=== PATIENT | male | born 1960 | race Caucasian/White ===

== ENCOUNTER → 2018-05-20 14:00 | Outpatient (CLI) | payer OTHER, MEDICAID, SELFPAY ==
--- NOTE | 2018-05-20 | OV.WND_ITS ---
Progress Note Details Patient Name: Alexx Paige Patient Number: [id number] PatientPatientDate: 05/20/2018 Clinician: Sadie Gibson Physician / Patient Access: Rafael Zamora SUBJECTIVE Chief Complaint This information was obtained from the patient Chronic Right ankle wound for at least 1 year Allergies Bactrim (Severity: Moderate, Reaction: HIves) HPI This information was obtained from the patient 05/21/18. Seen by Dr. Zamora. The patient's new to our clinic and presents with severe, refractory cellulitis of the right lower leg that's been present for at least a month and has been unresponsive to Bactrim which in fact caused a significant all over body rash. He has a right lower leg venous ulcer that's chronic and drains as well and reports considerable pain at this site. Of note, he's taken heavy doses of ibuprofen for the pain up to 4-5 tabs 3 -4 times daily but does not report abdominal pain or changes in his stool. Family History This information was obtained from the patient Cancer - Father, Diabetes - No History, Heart Disease - No History, Hereditary Spherocytosis - No History, Hypertension - No History, Kidney Disease - No History, Lung Disease - No History, Mental Illness - No History, Non-contributory - No History, None - No History, Other - No History, Seizures - No History, Stroke - No History, Thyroid Problems - No History, Tuberculosis - No History Social History This information was obtained from the patient Current every day smoker - 1/2-3/4 pack a day, Caffeine Use - 2 cups, Children - 2, Financial Concerns - Not currently, Illicit Drug Use - cannibus , Lives in - Home with Friend, 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, Self Care and Mobility Past Medical History This information was obtained from the patient Patient has a medical history of: Chronic Venous Hypertension Cellulitis Complaints and Symptoms This information was obtained from the patient Patient complains of: General Notes: I have reviewed and concur with the Review of Systems and Past Family Social History documents completed by the clinician, I have reviewed and concur with the Wound Assessment document completed by the clinician Cardiovascular (Central/Peripheral): Lower extremity (leg) swelling Integumentary (Hair/Skin/Nails): Open Sore Prior Wound History: Drainage, Erythema, Pain Patient denies complaints or symptoms related to: Cardiovascular (Central/Peripheral): Intermittent Claudication, Lower extremity (leg) resting pain Constitutional Symptoms (General Health): Chills, Fever Ear/Nose/Mouth/Throat: Hearing Loss / Aid Hematologic/Lymphatic: Bleeding / Clotting Disorders, Bleeding Tendency Neurological: Loss of Protective Sensation Psychiatric: Memory Loss Respiratory: Shortness of Breath General Notes: Updated Medications ibuprofen 200 mg capsule oral 1 1 capsule oral every 4-6 hours as needed prednisone 20 mg tablet oral tablet oral once daily for 5 days for rash doxycycline hyclate 100 mg capsule oral capsule oral twice daily for 7 days for cellulitis OBJECTIVE Constitutional BP elevated; Afebrile; Alert and in no distress. Well developed. Alert. Clean appearing.. Height/Length: 69 in (175.26 cm), Weight: 215 lbs (97.73 kgs), BMI: 31.7, Temperature: 98.8 ?F (37.11 ?C), Pulse: 100 bpm, Respiratory Rate: 18 breaths/min, Blood Pressure : 162/95 mmHg, Pulse Oximetry: 99 %. Ears, Nose, Mouth, and Throat: No clinically significant hearing loss on informal examination. Respiratory: No respiratory distress. Even respirations and without use of accessory muscles.. Cardiovascular: 2+ right lower extremity edema. Gastrointestinal (GI): Non-obese. Nondistended.. Integumentary (Hair, Skin) Moderate right lower leg and periwound erythema with warmth. Refer to appropriate clinician wound documentation for this visit; right lower leg ulcer extends to subcut with base partially covered with pink granulation, remainder fibrin and slough. Mild confluent, erythematous rash in the affected areas of torso, neck, and arms without appreciable drainage. Wound #1 Right Leg is a chronic Partial Thickness Vasculitic Ulcer and has received a status of Not Healed. Initial wound encounter measurements are 1cm length x 1.5cm width x 0.1cm depth, with an area of 1.5 sq cm and a volume of 0.15 cubic cm. No tunneling has been noted. No sinus tract has been noted. No undermining has been noted. There is a moderate amount of serous drainage noted which has no odor. The patient reports a wound pain of level 6/10. The wound margin is irregular. Wound bed has No epithelialization, No eschar, No slough, No granulation. The periwound skin texture is normal. The periwound skin moisture is normal. The periwound skin color is normal. The temperature of the periwound skin is Warm. Periwound skin presents with s/s of infection. Confirmation Description and Treatment Plan is: Signs and Symptoms Present. Local Pulse is Doppler. Neurological: Cranial nerves grossly intact with symmetric function normal by informal observation.. ASSESSMENT Active Problems ICD-10 (Encounter Diagnosis) L97.812 - Non-pressure chronic ulcer of other part of right lower leg with fat layer exposed (Encounter Diagnosis) I87.311 - Chronic venous hypertension (idiopathic) with ulcer of right lower extremity (Encounter Diagnosis) L03.115 - Cellulitis of right lower limb (Encounter Diagnosis) R21 - Rash and other nonspecific skin eruption (Encounter Diagnosis) T36.8X5A - Adverse effect of other systemic antibiotics, initial encounter PLAN Wound Orders: Wound #1 Right Leg Cleanser Cleanse Wound: - Distilled water. May Shower. - Keep wound dry, use cast protector boot. Topical Treatments Antibiotic/Antimicrobial Ointment/Cream. - Triple antibiotic ointment. Dressings Primary dressing: - Border foam. Change Dressing: - Every other day. Follow-Up Appointments Return Appointment: - - Next week. Scribing Attestation I attest, as the nurse, that I scribed these orders for the physician. Medications prescribed: doxycycline hyclate - oral 100 mg capsule twice daily for 7 days for cellulitis starting 05/20/2018 prednisone - oral 20 mg tablet once daily for 5 days for rash starting 05/20/2018 I've reviewed the clinician's documentation and agree with the evaluation and plan as written. Also, I've started the patient empirically on doxycycline for right lower leg cellulitis and prescribed a short course of prednisone to treat the rash related to his taking Bactrim. He's also been advised to take ibuprofen only as prescribed and to not take it while taking prednisone. Electronic Signature(s) Signed By: Date: Rafael Zamora MD 05/21/2018 14:35:09 Entered By: Rafael Zamora on 05/21/2018 14:33:27
== END ==
PROVIDERS: Visit Provider Internal Medicine
DX: I87.311 Chronic venous hypertension (idiopathic) with ulcer of right lower extremity (principal); L97.812 Non-pressure chronic ulcer of other part of right lower leg with fat layer exposed; L03.115 Cellulitis of right lower limb; R21 Rash and other nonspecific skin eruption; T36.8X5A Adverse effect of other systemic antibiotics, initial encounter
CPT/HCPCS: 87070; 87075; 87077; 87147; 87205; 99213

== ENCOUNTER → 2018-05-27 10:17 | Outpatient (CLI) | payer OTHER, MEDICAID, SELFPAY | PROVIDERS: Visit Provider Internal Medicine | DX: I87.311 Chronic venous hypertension (idiopathic) with ulcer of right lower extremity (principal); L97.812 Non-pressure chronic ulcer of other part of right lower leg with fat layer exposed; L03.115 Cellulitis of right lower limb; R21 Rash and other nonspecific skin eruption | CPT/HCPCS: 11042; 11045 ==

== ENCOUNTER → 2018-06-01 09:41 | Outpatient (CLI) | payer OTHER, MEDICAID, SELFPAY ==
--- NOTE | 2018-06-01 | OV.WND_ITS ---
Progress Note Details Patient Name: Alexx Paige Patient Number: [id number] PatientPatientDate: 06/01/2018 Clinician: Goldie Miranda Clinician Cosigner: Amanda Hernandez Physician / Appliance Service Representative: Rafael Zamora SUBJECTIVE Chief Complaint This information was obtained from the patient Chronic Right ankle wound for at least 1 year. Allergies Bactrim (Severity: Moderate, Reaction: Hives) HPI This information was obtained from the patient 06/01/18. Seen by Dr. Zamora. The patient continues to report moderate improvement in terms of his chronic right lower leg pain and cellulitis since starting on doxycycline and his wound culture from the associated venous ulcer grew group G Strep. He did not receive his prescription however for prednisone that was to treat the severe rash caused by taking Bactrim prior to his initial visit. He continues to report pruritus over this arms and torso. 05/27/18. Seen by Dr. Zamora. The patient reports moderate improvement in terms of his chronic right lower leg pain and cellulitis since starting on doxycycline last week and his wound culture from the associated venous ulcer grew group G Strep. He also feels his severe rash which start after taking Bactrim has begun to improve while taking prednisone. He does not report side effects from the doxycycline, fevers, or feeling unwell in general although he continues to report generalized pruritus. 05/21/18. Seen by Dr. Zamora. The patient's new to our clinic and presents with severe, refractory cellulitis of the right lower leg that's been present for at least a month and has been unresponsive to Bactrim which in fact caused a significant all over body rash. He has a right lower leg venous ulcer that's chronic and drains as well and reports considerable pain at this site. Of note, he's taken heavy doses of ibuprofen for the pain up to 4-5 tabs 3 -4 times daily but does not report abdominal pain or changes in his stool. Past Medical History This information was obtained from the patient Patient has a medical history of: Chronic Venous Hypertension Cellulitis Complaints and Symptoms This information was obtained from the patient Patient complains of: General Notes: I have reviewed and concur with the Review of Systems and Past Family Social History documents completed by the clinician, I have reviewed and concur with the Wound Assessment document completed by the clinician Allergic/Immunologic: Frequent Rashes Cardiovascular (Central/Peripheral): Lower extremity (leg) swelling Integumentary (Hair/Skin/Nails): Open Sore Prior Wound History: Drainage, Erythema, Pain Patient denies complaints or symptoms related to: Cardiovascular (Central/Peripheral): Intermittent Claudication, Lower extremity (leg) resting pain Constitutional Symptoms (General Health): Chills, Fever Ear/Nose/Mouth/Throat: Hearing Loss / Aid Gastrointestinal (GI): Nausea / Vomiting, Stomach/abdominal pain Hematologic/Lymphatic: Bleeding / Clotting Disorders, Bleeding Tendency Neurological: Loss of Protective Sensation Psychiatric: Memory Loss Respiratory: Shortness of Breath OBJECTIVE Constitutional Vital signs reviewed and noted. Well developed. Alert. Clean appearing.. Height/ Length: 69 in (175.26 cm), Weight: 213 lbs (96.82 kgs), BMI: 31.5, Temperature: 98.8 ?F ( 37.11 ?C), Pulse: 94 bpm, Respiratory Rate: 20 breaths/min, Pulse Oximetry: 96 %. Ears, Nose, Mouth, and Throat: No clinically significant hearing loss on informal examination. Respiratory: No respiratory distress. Even respirations and without use of accessory muscles.. Cardiovascular: 2+ right lower extremity edema. Integumentary (Hair, Skin) Hyperkeratotic changes noted periulcer area over the right lower leg; diffuse erythema improved in terms of color and warmth. Refer to appropriate clinician wound documentation for this visit; right lower leg ulcer extends to subcut with base partially covered with pink granulation, remainder fibrin and slough. Wound #1 Right Leg is a chronic Full Thickness Venous Ulcer and has received a status of Not Healed. Subsequent wound encounter measurements are 0.1cm length x 0.1cm width with no measurable depth, with an area of 0.01 sq cm . No tunneling has been noted. No sinus tract has been noted. No undermining has been noted. There was no drainage noted. The patient reports a wound pain of level 6/10. The wound margin is irregular. Wound bed has Yes epithelialization, No eschar, No slough, No granulation. The periwound skin texture is normal. The periwound skin moisture is normal. The periwound skin color is normal. The temperature of the periwound skin is Warm. Periwound skin presents with s/s of infection. Confirmation Description and Treatment Plan is: Signs and Symptoms Present, Systemic Antibiotics Prescribed. Local Pulse is Doppler. General Notes: Dried drainage present, no open area visible at this time. Neurological: Cranial nerves grossly intact with symmetric function normal by informal observation.. ASSESSMENT Active Problems ICD-10 (Encounter Diagnosis) L97.812 - Non-pressure chronic ulcer of other part of right lower leg with fat layer exposed (Encounter Diagnosis) I87.311 - Chronic venous hypertension (idiopathic) with ulcer of right lower extremity (Encounter Diagnosis) L03.115 - Cellulitis of right lower limb (Encounter Diagnosis) R21 - Rash and other nonspecific skin eruption (Encounter Diagnosis) T36.8X5A - Adverse effect of other systemic antibiotics, initial encounter PROCEDURES Wound #1 Wound #1 (Venous Ulcer) is located on the right leg. A non-selective mechanical debridement with a total area debrided of 0.01 sq cm was performed by Rafael Zamora MD. Non-viable tissue was removed.The procedure was tolerated well with a pain level of 0 throughout and a pain level of 0 following the procedure. Post Debridement Measurements: 0.1cm length x 0.1cm width x 0.1cm depth; with an area of 0.01 sq cm and a volume of 0.001 cubic cm; General Notes: Dried exudate removed. PLAN Wound Orders: Wound #1 Right Leg Cleanser Cleanse Wound: - Distilled water. May Shower. - If you wear a shower boot (cast protector) keep dressing dry and do not get the wound wet from bathing. Topical Treatments Moisturizing lotion to surround skin. - Over the counter steroid cream Dressings Cover and secure with: - Telfa pad, secured with conform wrap gauze. Change Dressing: - Every other day. Compression/Edema Control Elevation of leg(s) above the level of the heart when sitting. Avoid prolonged standing in one place. Single Layer Compression Hose - [employer]ou[employer] E. On in the morning off at night. Follow-Up Appointments Return Appointment: - - In one week. Other information: If you develop fever, chills, increased pain, drainage, redness or swelling please call our office. If after hours, respond to the ER. Should you experience any significant changes in your wound(s) or have any questions regarding your home care instructions please contact the wound center @ [phone]. If after hours, contact your primary care physician or go to the hospital emergency room. Scribing Attestation I attest, as the nurse, that I scribed these orders for the physician. Medications prescribed: doxycycline hyclate - oral 100 mg capsule twice daily for 7 days for cellulitis starting 06/01/2018 prednisone - oral 20 mg tablet once daily for 5 days for rash starting 06/01/2018 General Notes: Please continue taking the doxycycline, and hop picker new prescription of prednisone. I've reviewed the clinician's documentation and agree with the evaluation and plan as written. Also, I'll continue the patient on doxycycline as the cellulitis continues to improve and I've refilled his prednisone to treat the drug rash. Electronic Signature(s) Signed By: Date: Rafael Zamora MD 06/01/2018 17:46:20 Entered By: Rafael Zamora on 06/01/2018 17:41:54
== END ==
PROVIDERS: PCP Family Medicine Geriatric Medicine; Visit Provider Internal Medicine
DX: L97.812 Non-pressure chronic ulcer of other part of right lower leg with fat layer exposed (principal); I87.311 Chronic venous hypertension (idiopathic) with ulcer of right lower extremity; L03.115 Cellulitis of right lower limb; R21 Rash and other nonspecific skin eruption; T36.8X5A Adverse effect of other systemic antibiotics, initial encounter
CPT/HCPCS: 99213